=== PATIENT | female | born 1990 | race African-American/Black ===

== ENCOUNTER 2020-01-05 16:38 | Emergency (ER) | payer OTHER, SELFPAY ==
[2020-01-05 17:15] VITALS: BP 144/83; PULSE 94; RESP 20; TEMP 36.8; O2SAT 100
[2020-01-05 17:39] VITALS: BP 133/78; BP 134/87; BP 145/87; PULSE 88; PULSE 92
[2020-01-05 18:07] LABS: Basophils Percent Auto 0.6 % (0.2-1.2); Eosinophils Absolute Auto 0.1 K/mm3 (0-0.3); Eosinophils Percent Auto 2.1 % (0-4.4); Hemoglobin 13.9 g/dL (12.0-15.0); Immature Granulocyte Absolute 0.01 K/mm3 (0.00-0.031); Immature Granulocyte Percent A 0.2 % (0-0.5); Lymphocytes Absolute Auto 1.76 K/mm3 (0.9-3.2); Lymphocytes Percent Auto 33.3 % (18.3-44.2); Mean Corpuscular HGB Conc 32.3 g/dl (32-36); Mean Corpuscular Hemoglobin 28.1 pg (26-34); Mean Platelet Volume 11.2 fl (7.4-10.4); Monocytes Absolute Auto 0.4 K/mm3 (0.1-0.6); Monocytes Percent Auto 7.6 % (2.6-8.5); Neutrophils Percent Auto 56.2 % (45.5-73.1); Platelet Count Result 203 k/mm3 (150-375); Red Blood Count 4.94 M/mm3 (4.2-5.4); Red Cell Distribution Width 13.2 % (11.5-14.5); White Blood Count 5.3 K/mm3 (4.5-10.0)
[2020-01-05 18:22] LABS: Blood Urea Nitrogen 15 mg/dL (7-17); Calcium 9.6 mg/dL (8.4-10.2); Carbon Dioxide 22 mmol/L (22-30); Chloride 103 mmol/L (98-107); Estimated CRCL calculation 94 ml/min; Estimated Glomerular Filt Rate > 60; Glucose 83 mg/dL (65-105); Potassium 4.6 mmol/L (3.4-5.0); Sodium 137 mmol/L (137-145)
--- NOTE | 2020-01-05 19:11 | PC.NURSE ---
Assumed care of pt at this time/. Report from ANGEL Whittaker
--- NOTE | 2020-01-05 19:25 | ED.GENADULT ---
HPI - General Adult General Chief complaint: Dizziness Stated complaint: dizzy, lightheaded, +preg test Time Seen by Provider: 01/05/20 19:01 History of Present Illness HPI narrative: Patient presents with her boyfriend for 1 month of feeling dizzy lightheaded and nauseated. She recently had a positive urine test. She has an appointment with her new [employer]NER on January 19. Her last period was in the beginning of November. She is G6, P5, Ab1. She works at the [employer] for [employer] and there is no air conditioning in the [employer]. She gets very lightheaded and overheated. She is allowed to take 30-minute breaks in the air conditioned lunchroom.. She does not have any medicine at home for nausea. She has no medical problems. She is not high risk for the . She has surgery on her left shoulder. She does not smoke, drink alcohol, or do drugs. Her boyfriend said she also has trouble sleeping. Onset (ago): week(s) Related Data Allergies Allergy/AdvReac Type Severity Reaction Status Date / Time ibuprofen Allergy Itching Verified 01/05/20 17:26 Review of Systems Review of Systems: Narrative: CONSTITUTIONAL: Denies fever, chills, or sweats. EYES: Denies visual changes, redness, or discharge. ENT: Denies rhinorrhea, congestion, sore throat, or otalgia. CARDIOVASCULAR: Denies chest pain, palpitations, or edema. RESPIRATORY: Denies cough or dyspnea. GASTROINTESTINAL: Denies abdominal pain, but does have nausea. GENITOURINARY: Denies dysuria or hematuria. SKIN: Denies rash or itching. MUSCULOSKELETAL: Denies back pain, joint pain, or myalgia. NEUROLOGIC: Denies headache, numbness, or weakness. . PMFSH Surgical History Surgical History History of shoulder surgery Social History Social History (Updated 01/05/20 @ 19:28 by Heather Goncalves MD) Smoking status: Never smoker Alcohol intake: former Substance use: never Exam Narrative: Exam Narrative: GENERAL: Well-appearing, well-nourished, and in no acute distress. Heavy hair extensions, long fake eyelashes, many tattoos, overweight. HEAD: Normocephalic, atraumatic. EYES: PERRLA and EOMI. ENT: Nares clear, no rhinorrhea or epistaxis. Mucous membranes moist. NECK: Supple. CHEST: Clear to auscultation. No respiratory distress. HEART: Regular rate and rhythm. No murmur heard. Normal peripheral pulses. ABDOMEN: Soft, nontender, nondistended, normal active bowel sounds. EXTREMITIES: Normal range of motion. No edema. SKIN: Warm, dry, no rash. NEURO: No focal deficits. Alert and oriented x3. PSYCH: Normal mood and affect. Course Vital Signs Vital signs: Vital Signs Temperature 98.3 F 01/05/20 17:15 Pulse Rate 94 01/05/20 17:15 Respiratory Rate 01/05/20 17:15 Blood Pressure 144/83 H 01/05/20 17:15 Pulse Oximetry 100 01/05/20 17:15 Temperature 98.3 F 01/05/20 17:15 Pulse Rate 92 01/05/20 17:39 Respiratory Rate 01/05/20 17:15 Blood Pressure 145/87 H 01/05/20 17:39 Pulse Oximetry 100 01/05/20 17:15 Medical Decision Making Medical Records Medical records reviewed: Yes I reviewed the patient's medical records. Vital Signs Vital Signs: Vital Signs Temperature 98.3 F 01/05/20 17:15 Pulse Rate 94 01/05/20 17:15 Respiratory Rate 01/05/20 17:15 Blood Pressure 144/83 H 01/05/20 17:15 Pulse Oximetry 100 01/05/20 17:15 Temperature 98.3 F 01/05/20 17:15 Pulse Rate 92 01/05/20 17:39 Respiratory Rate 01/05/20 17:15 Blood Pressure 145/87 H 01/05/20 17:39 Pulse Oximetry 100 01/05/20 17:15 Lab Data Lab results reviewed: Yes I reviewed the patient's lab results. Result diagrams: 01/05/20 18:01 01/05/20 18:01 Labs: Lab Results 01/05/20 01/05/20 Range/Units 18:01 18:01 WBC 5.3 (4.5-10.0) K/mm3 RBC 4.94 (4.2-5.4) M/mm3 Hgb 13.9 (12.0-15.0) g/dL Hct 43.0 (37.0-47.0) % MCV 87.0
[2020-01-05 19:27] VITALS: BP 118/83; PULSE 98; RESP 15; O2SAT 100
[2020-01-05 19:35] VITALS: BP 119/82; PULSE 79; RESP 15; O2SAT 100
== END 2020-01-05 19:35 | disposition home or self-care (01) ==
PROVIDERS: Emergency Medicine; Emergency Provider Emergency Medicine
DX: O9A.211 Injury, poisoning and certain other consequences of external causes complicating pregnancy, first trimester (principal); T67.9XXA Effect of heat and light, unspecified, initial encounter; O26.891 Other specified pregnancy related conditions, first trimester; R11.0 Nausea; Z3A.00 Weeks of gestation of pregnancy not specified
CPT/HCPCS: 36415; 80048; 81025; 85025; 99283

== ENCOUNTER 2020-02-22 07:35 | Emergency (ER) | payer MEDICAID, SELFPAY ==
--- NOTE | ~2020-02-22 | XR_ITS ---
EXAMINATION: XR chest 2V DATE: 02/22/2020 08:23 INDICATION: Chest pain TECHNIQUE: PA and lateral views of the chest are obtained. COMPARISON: None available FINDINGS: The lungs are free of acute opacities. There is no pleural effusion or pneumothorax. The ca rdiomediastinal silhouette is normal. The visualized bones and soft tissues are unremarkable. IMPRESSION: 1. No acute cardiopulmonary abnormality. Reviewed, dictated and finalized at location A.
[2020-02-22 07:39] VITALS: BP 142/94; PULSE 84; RESP 18; TEMP 36.5; O2SAT 100
--- NOTE | 2020-02-22 07:39 | ED.CHESTPAIN ---
HPI - Chest Pain General Chief Complaint: Chest Pain Stated Complaint: Pulled Muscle but now Chest Pain Time Seen by Provider: 02/22/20 07:38 Source: patient Mode of arrival: ambulatory Limitations: no limitations History of Present Illness HPI narrative: Patient is a 29-year-old female who presents for evaluation of right arm pain that has radiated into her right chest. Patient reports and over 2-week history of right arm pain that she initially noticed when she was pulling carts at work. Patient states she attributed this to musculoskeletal pain but has since noticed constant chest pain in the center of her chest that is worse when she is doing exertional activities such as pulling, bending or lifting. Patient states that the central chest pain has been present for over 2 weeks. Her primary care physician did evaluate this and felt that it was musculoskeletal. No associated palpitations, shortness of breath, nausea or diaphoresis. Patient is not on control. Patient does not smoke. No recent long car or air travel. No fever, hemoptysis or cough. No leg swelling or pain. No history of DVT. Related Data Allergies Allergy/AdvReac Type Severity Reaction Status Date / Time ibuprofen Allergy Itching Verified 02/22/20 07:59 Review of Systems Review of Systems: Narrative: CONSTITUTIONAL: Denies fever, chills, or sweats. EYES: Denies visual changes, redness, or discharge. ENT: Denies rhinorrhea, congestion, sore throat, or otalgia. CARDIOVASCULAR: Reports central chest pain, denies palpitations or edema RESPIRATORY: Denies cough or dyspnea. GASTROINTESTINAL: Denies abdominal pain, nausea GENITOURINARY: Denies dysuria or hematuria. SKIN: Denies rash or itching. MUSCULOSKELETAL: Denies back pain NEUROLOGIC: Denies headache [facility] Surgical History Surgical History History of shoulder surgery Social History Social History Smoking status: Never smoker Alcohol intake: former Substance use: never Exam Narrative: Exam Narrative: GENERAL: Awake, alert, conversant HEAD: Normocephalic, atraumatic. EYES: PERRLA and EOMI. ENT: Nares clear, no rhinorrhea or epistaxis. Mucous membranes moist. NECK: Supple. CHEST: No respiratory distress, breathing even and non labored, central chest wall tenderness which reproduces pain, no crepitus or ecchymoses HEART: Regular rate, sinus rhythm, no murmur ABDOMEN:Non distended, non tender EXTREMITIES: Normal range of motion. No edema. No calf tenderness bilaterally. SKIN: Warm, dry, no rash. NEURO:No focal deficits. Alert and oriented x3 Course Vital Signs Vital signs: Vital Signs Temperature 36.5 C 02/22/20 07:39 Pulse Rate 84 02/22/20 07:39 Respiratory Rate 18 02/22/20 07:39 Blood Pressure 142/94 H 02/22/20 07:39 Pulse Oximetry 100 02/22/20 07:39 Temperature 36.5 C 02/22/20 07:39 Pulse Rate 74 02/22/20 08:50 Respiratory Rate 18 02/22/20 08:50 Blood Pressure 149/92 H 02/22/20 08:50 Pulse Oximetry 100 02/22/20 08:50 MDM - Chest Pain MDM Narrative Medical decision making narrative: Patient's EKG and labs are without significant high risk changes. She does have a very mild leukopenia which is new compared to previous lab draw, this can best be followed by her primary care physician. There are no signs of acute infection currently. Cardiac risk factors reviewed. Patient is felt low risk for ACS and reasonable for further risk stratification testing as an outpatient. Initial troponin is negative, making myocarditis, endocarditis less likely. Pain was not sudden or maximal or onset without tearing or ripping quality. No other signs or symptoms to suggest aortic dissection. A low risk well's criteria is noted, PE is felt to be unlikely. Patient is PERC negative, no tachycardia, not a smoker, not on any control thus we do not need to o
--- NOTE | 2020-02-22 07:55 | ECG_ITS ---
Measurements Intervals [place] Rate: 74 P: 61 NE: 163 QRS: 51 QRSD: 90 T: 41 QT: 375 QTc: 417 Interpretive Statements SINUS RHYTHM RSR' IN V1 OR V2, CONSIDER RIGHT VENTRICULAR HYPERTROPHY OR RIGHT VCD BASELINE WANDER- I, II, AVR BORDERLINE ECG Electronically Signed On 02-22-2020 9:29:01 CDT by Sarkis Phelps D.O.
[2020-02-22 08:24] LABS: Prothrombin Time 12.7 Seconds (11.1-14.7)
[2020-02-22 08:26] LABS: Partial Thromboplastin Time 25.7 SECONDS (22.3-36.8)
[2020-02-22 08:27] LABS: Anion Gap 5 mmol/L (8-16); Blood Urea Nitrogen 10 mg/dL (7-17); Calcium 9.3 mg/dL (8.4-10.2); Carbon Dioxide 29 mmol/L (22-30); Chloride 105 mmol/L (98-107); Estimated CRCL calculation 102 ml/min; Estimated Glomerular Filt Rate > 60; Glucose 87 mg/dL (65-105); Potassium 3.8 mmol/L (3.4-5.0); Sodium 139 mmol/L (137-145)
[2020-02-22 08:39] LABS: Troponin I < 0.012 ng/mL (0.000-0.034)
[2020-02-22 08:47] LABS: Basophils Percent Auto 0.4 % (0.2-1.2); Eosinophils Absolute Auto 0.1 K/mm3 (0-0.3); Hemoglobin 12.8 g/dL (12.0-15.0); Lymphocytes Absolute Auto 1.02 K/mm3 (0.9-3.2); Lymphocytes Percent Auto 41.1 % (18.3-44.2); Mean Corpuscular Hemoglobin 27.9 pg (26-34); Mean Corpuscular Volume 87.3 fl (80-100); Mean Platelet Volume 11.5 fl (7.4-10.4); Monocytes Absolute Auto 0.3 K/mm3 (0.1-0.6); Monocytes Percent Auto 10.1 % (2.6-8.5); Neutrophils Absolute Auto 1.2 K/mm3 (1.3-6.7); Neutrophils Percent Auto 46.4 % (45.5-73.1); Platelet Count Result 154 k/mm3 (150-375); Red Blood Count 4.58 M/mm3 (4.2-5.4); Red Cell Distribution Width 12.7 % (11.5-14.5); White Blood Count 2.5 K/mm3 (4.5-10.0)
[2020-02-22 08:50] VITALS: BP 149/92; PULSE 74; RESP 18; O2SAT 100
== END 2020-02-22 09:00 | disposition home or self-care (01) ==
PROVIDERS: Emergency Provider Emergency Medicine; PCP Physician Assistant
DX: R07.89 Other chest pain (principal); R94.31 Abnormal electrocardiogram [ECG] [EKG]
CPT/HCPCS: 36415; 71046; 80048; 84484; 85025; 85610; 85730; 93005; 99284

== ENCOUNTER 2020-02-28 18:17 | Emergency (ER) | payer MEDICAID, SELFPAY ==
[2020-02-28 18:20] VITALS: BP 136/84; PULSE 96; RESP 18; TEMP 36.1; O2SAT 100
--- NOTE | 2020-02-28 19:42 | ED.EAR ---
HPI - Ear Problem General Chief complaint: Ear <Walter Chaney PA-C - Last Filed: 02/28/20 19:46> Stated complaint: real bad earache <SARBJIT Tsang Last Filed: 02/28/20 19:46> Time Seen by Provider: 02/28/20 19:15 <Walter Chaney PA-C - Last Filed: 02/28/20 19:46> Source: patient <Walter Chaney PA-C - Last Filed: 02/28/20 19:46> Mode of arrival: ambulatory <Walter Chaney PA-C - Last Filed: 02/28/20 19:46> Limitations: no limitations <Walter Chaney PA-C - Last Filed: 02/28/20 19:46> History of Present Illness HPI Narrative: Patient is a 29-year-old female who presents to emergency department for evaluation of right ear pain and some discomfort with swallowing on the right side denies other URI symptoms fever chills patient believes that when she drinks she develops these symptoms noting that she drinks roughly twice a week. Patient has not taken anything for her symptoms and is otherwise resting comfortably in the room upon arrival and has not taken anything for her symptoms nor has she been seen for this complaint <Walter Chaney PA-C - Last Filed: 02/28/20 19:46> Related Data Allergies/adverse reactions: Allergies Allergy/AdvReac Type Severity Reaction Status Date / Time ibuprofen Allergy Itching Verified 02/22/20 07:59 <Walter Chaney PA-C - Last Filed: 02/28/20 19:46> Review of Systems Review of Systems: All systems reviewed & are unremarkable except as noted in HPI and below <Walter Chaney PA-C - Last Filed: 02/28/20 19:46> PMFSH Surgical History Surgical History: Surgical History History of shoulder surgery <SARBJIT Tsang Last Filed: 02/28/20 19:46> Social History Social History: Social History Smoking status: Never smoker Alcohol intake: former Substance use: never Gender identity (if verbalized by the patient): Female <SARBJIT Tsang Last Filed: 02/28/20 19:46> Exam Narrative: Exam Narrative: GENERAL: Well-appearing, well-nourished, and in no acute distress. HEAD: Normocephalic, atraumatic. EYES: PERRLA and EOMI. ENT: Nares clear, no rhinorrhea or epistaxis. Mucous membranes moist. Oropharynx without tonsillar hypertrophy exudate or other lesions. Bilateral TMs pearly shah nonbulging NECK: Supple. No adenopathy or masses. CHEST: Clear to auscultation. No respiratory distress. No wheezes rales or rhonchi HEART: Regular rate and rhythm. No murmur heard. EXTREMITIES: Normal range of motion. No edema. SKIN: Warm, dry, no rash. NEURO: No focal deficits. Alert and oriented x3. PSYCH: Normal mood and affect. <SARBJIT Tsang Last Filed: 02/28/20 19:46> Course Course Emergency Course: Patient in the room in no distress aware of case findings treatment plan and diagnosis felt appropriate for discharge home <SARBJIT Tsang Last Filed: 02/28/20 19:46> Vital Signs Vital signs: Vital Signs Temperature 36.1 C L 02/28/20 18:20 Pulse Rate 96 02/28/20 18:20 Respiratory Rate 18 02/28/20 18:20 Blood Pressure 136/84 02/28/20 18:20 Pulse Oximetry 100 02/28/20 18:20 Temperature 36.1 C L 02/28/20 18:20 Pulse Rate 96 02/28/20 18:20 Respiratory Rate 18 02/28/20 18:20 Blood Pressure 136/84 02/28/20 18:20 Pulse Oximetry 100 02/28/20 18:20 <SARBJIT Tsang Last Filed: 02/28/20 19:46> Vital Signs Temperature 36.1 C L 02/28/20 18:20 Pulse Rate 96 02/28/20 18:20 Respiratory Rate 18 02/28/20 18:20 Blood Pressure 136/84 02/28/20 18:20 Pulse Oximetry 100 02/28/20 18:20 Temperature 36.1 C L 02/28/20 18:20 Pulse Rate 96 02/28/20 18:20 Respiratory Rate 18 02/28/20 18:20 Blood Pressure 136/84 02/28/20 18:20 Pulse Oximetry 100 02/28/20 18:20 <Cb Martin MD -
== END 2020-02-28 21:07 | disposition home or self-care (01) ==
PROVIDERS: Emergency Provider Emergency Medicine; PCP Physician Assistant
DX: H92.01 Otalgia, right ear (principal)
CPT/HCPCS: 99283

== ENCOUNTER 2020-03-28 17:45 | Emergency (ER) | payer OTHER, SELFPAY ==
--- NOTE | ~2020-03-28 | XR_ITS ---
XR foot LT min 3V DATE: 03/28/2020 18:25 INDICATION: Injury one week ago. Lateral metatarsal foot pain TECHNIQUE: 4 views COMPARISON: None FINDINGS: No recent fracture, dislocation, periosteal reaction or bone destruction. Joint spaces are preserved. No erosive change. IMPRESSION: Reviewed, dictated and finalized at location A. IMPRESSION:
[2020-03-28 17:49] VITALS: BP 129/73; PULSE 82; TEMP 36.7; O2SAT 100
--- NOTE | 2020-03-28 18:37 | ED.LOWEXIN ---
HPI - Extremity Injury (Lower) General Chief Complaint: Extremity Injury, Lower <Luli Kong PA-C - Last Filed: 03/28/20 19:20> Stated Complaint: foot injury last week <SARBJIT Pearson Last Filed: 03/28/20 19:20> Time Seen by Provider: 03/28/20 18:03 <Luli Kong PA-C - Last Filed: 03/28/20 19:20> Source: patient <SARBJIT Pearson Last Filed: 03/28/20 19:20> Mode of arrival: ambulatory <SARBJIT Pearson Last Filed: 03/28/20 19:20> Limitations: no limitations <Luli Kong PA-C - Last Filed: 03/28/20 19:20> History of Present Illness HPI Narrative: This is a 29 year old female that presents to the ER for left foot pain after an injury 1 week ago. Reports a tote fell on her foot. Since she has had pain in the area. Worse with weight bearing and relieved with rest. Denies decreased ROM or numbness. <Luli Kong PA-C - Last Filed: 03/28/20 19:20> Related Data Home Medications: Home Medications Medication Instructions Recorded Confirmed No Home Medications 03/28/20 03/28/20 <Luli Kong PA-C - Last Filed: 03/28/20 19:20> Allergies/Adverse Reactions: Allergies Allergy/AdvReac Type Severity Reaction Status Date / Time ibuprofen Allergy Itching Verified 03/28/20 17:51 <Luli Kong PA-C - Last Filed: 03/28/20 19:20> Review of Systems Review of Systems: Narrative: CONSTITUTIONAL: Denies fever SKIN: Denies rash MUSCULOSKELETAL: Reports joint pain, and myalgia. NEUROLOGIC: Denies numbness, or weakness. <SARBJIT Pearson Last Filed: 03/28/20 19:20> All systems reviewed & are unremarkable except as noted in HPI and below <SARBJIT Pearson Last Filed: 03/28/20 19:20> [facility] Surgical History Surgical History: Surgical History History of shoulder surgery <Luli Kong PA-C - Last Filed: 03/28/20 19:20> Social History Social History: Social History Smoking status: Never smoker Alcohol intake: former Substance use: never Gender identity (if verbalized by the patient): Female <Luli Kong PA-C - Last Filed: 03/28/20 19:20> Exam Narrative: Exam Narrative: GENERAL: Well-appearing, well-nourished, and in no acute distress. HEAD: Normocephalic, atraumatic. EYES: EOMI. EXTREMITIES: Normal range of motion. No edema or obvious deformity. Normal DP pulses. Normal sensation SKIN: Warm, dry, no rash. NEURO: No focal deficits. Alert and oriented x3. PSYCH: Normal mood and affect <Luli Kong PA-C - Last Filed: 03/28/20 19:20> Course Vital Signs Vital signs: Vital Signs Temperature 36.7 C 03/28/20 17:49 Pulse Rate 82 03/28/20 17:49 Blood Pressure 129/73 03/28/20 17:49 Pulse Oximetry 100 03/28/20 17:49 Temperature 36.7 C 03/28/20 17:49 Pulse Rate 80 03/28/20 19:40 Respiratory Rate 19 03/28/20 19:40 Blood Pressure 127/75 03/28/20 19:40 Pulse Oximetry 99 03/28/20 19:40 <Luli Kong PA-C - Last Filed: 03/28/20 19:20> Vital Signs Temperature 36.7 C 03/28/20 17:49 Pulse Rate 82 03/28/20 17:49 Blood Pressure 129/73 03/28/20 17:49 Pulse Oximetry 100 03/28/20 17:49 Temperature 36.7 C 03/28/20 17:49 Pulse Rate 80 03/28/20 19:40 Respiratory Rate 19 03/28/20 19:40 Blood Pressure 127/75 03/28/20 19:40 Pulse Oximetry 99 03/28/20 19:40 <Elida Pulido MD - Last Filed: 03/28/20 21:05> MDM - Extremity Injury (Lower) MDM Narrative Medical decision making narrative: Patient presents emergency department for left foot pain after an injury 1 week ago. Left foot x-rays without acute findings. Patient was instructed to rest, ice and take [id number] pain medication as needed. Patient is to follow-up with primary care doctor. She was given warnings to return to the
[2020-03-28 19:40] VITALS: BP 127/75; PULSE 80; RESP 19; O2SAT 99
== END 2020-03-28 19:42 | disposition home or self-care (01) ==
PROVIDERS: Emergency Provider Emergency Medicine; PCP Physician Assistant
DX: M79.672 Pain in left foot (principal)
CPT/HCPCS: 73630; 99283

== ENCOUNTER 2020-06-21 11:49 | Emergency (ER) | payer OTHER, SELFPAY ==
[2020-06-21 12:05] VITALS: BP 129/85; PULSE 110; RESP 18; TEMP 36.9; O2SAT 98
--- NOTE | 2020-06-21 12:38 | ED.EAR ---
HPI - Ear Problem General Chief complaint: Ear Stated complaint: right ear ache Time Seen by Provider: 06/21/20 12:11 Source: patient Mode of arrival: ambulatory Limitations: no limitations History of Present Illness HPI Narrative: Patient is a 29-year-old female who presents complaining of right ear pain x1 day. Patient also reports mild congestion. She denies exposure to Covid. She denies all other complaints at this time. She denies taking [id number] medications for pain relief. MD Complaint: ear pain Location: right ear Related Data Allergies Allergy/AdvReac Type Severity Reaction Status Date / Time ibuprofen Allergy Itching Verified 06/21/20 12:17 Review of Systems Review of Systems: Narrative: CONSTITUTIONAL: Denies fever, chills, or sweats. EYES: Denies visual changes, redness, or discharge. ENT: Right otalgia CARDIOVASCULAR: Denies chest pain, palpitations, or edema. RESPIRATORY: Denies cough or dyspnea. GASTROINTESTINAL: Denies abdominal pain, nausea, vomiting, or diarrhea. GENITOURINARY: Denies dysuria or hematuria. SKIN: Denies rash or itching. MUSCULOSKELETAL: Denies back pain, joint pain, or myalgia. NEUROLOGIC: Denies headache, numbness, dizziness, or weakness. PSYCHIATRIC: Denies anxiety or depression. [facility] Surgical History Surgical History History of shoulder surgery Social History Social History Smoking status: Never smoker Alcohol intake: former Substance use: never Gender identity (if verbalized by the patient): Female Exam Narrative: Exam Narrative: GENERAL: Well-appearing, well-nourished, and in no acute distress. HEAD: Normocephalic, atraumatic. EYES: EOMI. No redness or drainage. Conjunctiva are normal. ENT: Mucous membranes pink and moist. Nares clear. Left TM normal, right TM bulging and injected. Throat normal. Uvula midline. NECK: AROM. Supple. No lymphadenopathy. CHEST: No respiratory distress. EXTREMITIES: Normal range of motion. SKIN: Warm, dry, no rash. NEURO: No focal deficits. Alert and oriented x3. Gait steady. PSYCH: Normal affect. No signs of depression or anxiety. Course Vital Signs Vital signs: Vital Signs Temperature 36.9 C 06/21/20 12:05 Pulse Rate 110 H 06/21/20 12:05 Respiratory Rate 18 06/21/20 12:05 Blood Pressure 129/85 06/21/20 12:05 Pulse Oximetry 98 06/21/20 12:05 Temperature 36.9 C 06/21/20 12:05 Pulse Rate 110 H 06/21/20 12:05 Respiratory Rate 18 06/21/20 12:05 Blood Pressure 129/85 06/21/20 12:05 Pulse Oximetry 98 06/21/20 12:05 Medical Decision Making MDM Narrative Medical decision making narrative: Patient has right otitis media. Discussed with patient starting antibiotics and taking Tylenol for pain. Patient aware of the need for follow-up for an ear recheck in 2 to 3 weeks. Patient also instructed on use of Flomax and [id number] allergy relief for other complaints as well. Patient is stable for discharge home with outpatient follow-up as discussed. Differential Diagnosis Differential Diagnosis: Otitis media, otitis externa, foreign body, cerumen impaction Vital Signs Vital Signs: Vital Signs Temperature 36.9 C 06/21/20 12:05 Pulse Rate 110 H 06/21/20 12:05 Respiratory Rate 18 06/21/20 12:05 Blood Pressure 129/85 06/21/20 12:05 Pulse Oximetry 98 06/21/20 12:05 Temperature 36.9 C 06/21/20 12:05 Pulse Rate 110 H 06/21/20 12:05 Respiratory Rate 18 06/21/20 12:05 Blood Pressure 129/85 06/21/20 12:05 Pulse Oximetry 98 06/21/20 12:05 Reviewed-patient is informed that they may have pre-hypertension or hypertension based on a blood pressure reading. I recommend the patient call the primary care provider listed on their discharge instructions or a physician of their choice this week to arrange follow-up for further evaluation of possible pre-h
[2020-06-21 12:56] VITALS: BP 124/88; PULSE 98; RESP 20; O2SAT 99
[2020-06-21] MEDS: ACETAMINOPHEN 500 MG TABLET 1000 MG PO (12:56)
== END 2020-06-21 12:58 | disposition home or self-care (01) ==
PROVIDERS: Emergency Provider Nurse Practitioner; PCP Physician Assistant
DX: H66.91 Otitis media, unspecified, right ear (principal); R03.0 Elevated blood-pressure reading, without diagnosis of hypertension
CPT/HCPCS: 99283; A9270

== ENCOUNTER 2022-05-12 14:08 | Emergency (ER) | payer BC, OTHER, SELFPAY ==
--- NOTE | ~2022-05-12 | XR_ITS ---
EXAMINATION: XR chest 1V portable DATE: 05/12/2022 15:34 INDICATION: Cough and midsternal chest pain TECHNIQUE: frontal view of the chest was obtained. COMPARISON: Chest radiograph dated 02/22/20 FINDINGS: The lungs remain clear with no focal airspace opacities, pulmonary edema, pleural effusion or pneumot horax. The cardiomediastinal silhouette is normal. Chronic exostosis which appears to demonstrate cor tical medullary continuity on the prior radiograph at the medial metadiaphyseal region of the proxima l left humerus consistent with an osteochondroma. IMPRESSION: 1. No acute cardiopulmonary disease. Reviewed, dictated and finalized at location A. L TECHNICIAN
[2022-05-12 14:31] VITALS: BP 131/87; PULSE 100; RESP 16; TEMP 36.9; O2SAT 100
--- NOTE | 2022-05-12 14:35 | ECG_ITS ---
Measurements Intervals [place] Rate: 93 P: 69 CO: 164 QRS: 68 QRSD: 90 T: 65 QT: 341 QTc: 426 Interpretive Statements SINUS RHYTHM RSR' IN V1 OR V2, PROBABLY NORMAL VARIANT BORDERLINE ST-T WAVE ABNORMALITY- ANT/INF LEADS BASELINE ARTIFACT- I, II, AVR, V4 BORDERLINE ECG COMPARED TO ECG 02/22/2020 07:55:29 NO SIGNIFICANT CHANGES Electronically Signed On 05-12-2022 20:51:22 SPANISH TRANSLATOR by Sarkis Phelps D.O.
--- NOTE | 2022-05-12 15:45 | ED.GENADULT ---
HPI - General Adult General Chief complaint: Unspecified Stated complaint: ? fb throat Time Seen by Provider: 05/12/22 15:13 Source: patient Mode of arrival: ambulatory Limitations: no limitations History of Present Illness HPI narrative: 31-year-old female presents today with complaints of intermittent chest pain over the last few days. Patient describes it as a burning sensation. Patient does endorse a cough but denies fever, body aches, chills, but did start with a sore throat this morning. Patient did also mention that she swallowed some turkey yesterday and felt discomfort in the chest afterwards. But then again she states that this discomfort that she felt after swallowing the turkey is the same discomfort that she has had for the last few days. Patient denies any shortness of breath, difficulty breathing, or difficulty swallowing. Patient has had recent contact with family members who are positive for influenza and pneumonia. Patient tolerating intake and food without difficulty at this time. Related Data Allergies Allergy/AdvReac Type Severity Reaction Status Date / Time ibuprofen Allergy Itching Verified 06/21/20 12:17 Review of Systems Review of Systems: CONSTITUTIONAL: Denies fever, chills, or sweats. EYES: Denies visual changes, redness, or discharge. ENT: Sore throat. Denies rhinorrhea, congestion, or otalgia. CARDIOVASCULAR: Intermittent chest pain, pleuritic pain. Denies palpitations, or edema. RESPIRATORY: Cough. Denies dyspnea. GASTROINTESTINAL: Denies abdominal pain, nausea, vomiting, or diarrhea. GENITOURINARY: Denies dysuria or hematuria. SKIN: Denies rash or itching. MUSCULOSKELETAL: Denies back pain, joint pain, or myalgia. NEUROLOGIC: Denies headache, numbness, dizziness, or weakness. PSYCHIATRIC: Denies anxiety or depression. [facility] Surgical History Surgical History History of shoulder surgery Social History Social History Smoking status: Never smoker Alcohol intake: former Substance use: never Gender identity (if verbalized by the patient): Female Course Vital Signs Vital signs: Vital Signs Temperature 98.4 F 05/12/22 14:31 Pulse Rate 100 05/12/22 14:31 Respiratory Rate 16 05/12/22 14:31 Blood Pressure 131/87 11/24/22 14:31 Pulse Oximetry 100 05/12/22 14:31 Temperature 98.4 F 05/12/22 14:31 Pulse Rate 100 05/12/22 14:31 Respiratory Rate 16 05/12/22 14:31 Blood Pressure 131/87 05/12/22 14:31 Pulse Oximetry 100 05/12/22 14:31 Medical Decision Making MDM Narrative Medical decision making narrative: 31-year-old female HPI as noted. Differentials as noted below. Low suspicion for actual foreign body in the throat and patient states the same. Work-up to include COVID, flu, EKG, chest x-ray. COVID and flu negative, EKG shows normal sinus rhythm without ectopy. Chest x-ray without any acute findings. Suspect possible blocks versus bronchitis. Patient does state that her cough is not that bad and is random. So more likely reflux is the issue. She does eat spicy foods. Differential Diagnosis Differential Diagnosis: Flu, COVID, bronchitis, viral syndrome, acid reflux. Medical Records Medical records reviewed: Yes I reviewed the external patient's medical records. Vital Signs Vital Signs: Vital Signs Temperature 98.4 F 05/12/22 14:31 Pulse Rate 100 05/12/22 14:31 Respiratory Rate 16 05/12/22 14:31 Blood Pressure 131/87 05/12/22 14:31 Pulse Oximetry 100 05/12/22 14:31 Temperature 98.4 F 05/12/22 14:31 Pulse Rate 100 05/12/22 14:31 Respiratory Rate 16 05/12/22 14:31 Blood Pressure 131/87 05/12/22 14:31 Pulse Oximetry 100 05/12/22 14:31 Lab Data Lab results reviewed: Yes I reviewed the patient's lab results. Labs: Lab Results 05/12/22 Range/Units 15:32 Influenza A (RT-PCR) Ne
[2022-05-12 16:13] LABS: Influenza A QL RT-PCR Negative (Negative); Influenza B QL RT-PCR Negative (Negative); SARS-CoV-2 RNA PCR Negative
== END 2022-05-12 17:30 | disposition home or self-care (01) ==
PROVIDERS: Emergency Provider Nurse Practitioner Family; PCP Physician Assistant
DX: R07.9 Chest pain, unspecified (principal); K21.9 Gastro-esophageal reflux disease without esophagitis; Z20.822 Contact with and (suspected) exposure to COVID-19; R94.31 Abnormal electrocardiogram [ECG] [EKG]
CPT/HCPCS: 71045; 87636; 93005; 99283

== ENCOUNTER 2024-03-25 17:09 | Emergency (ER) | payer OTHER, SELFPAY | END 2024-03-25 18:51 | disposition left against medical advice (07) | LOC: ANHED 18:49 | PROVIDERS: PCP Physician Assistant | DX: L29.9 Pruritus, unspecified (principal) | CPT/HCPCS: 99199 ==

== ENCOUNTER 2024-03-31 09:19 | Emergency (ER) | payer OTHER, SELFPAY ==
--- NOTE | ~2024-03-31 | XR_ITS ---
EXAMINATION: XR chest 1V portable DATE: 03/31/2024 10:11 INDICATION: Leg swelling. TECHNIQUE: A single frontal view of the chest was obtained. COMPARISON: Chest single view 05/12/2022 FINDINGS: There is no pneumonia, pleural effusion, or pneumothorax. The heart size is normal. IMPRESSION: 1. No acute cardiopulmonary disease. Reviewed, dictated and finalized at location A.
--- NOTE | ~2024-03-31 | XR_ITS ---
EXAMINATION: XR elbow RT min 3V DATE: 03/31/2024 10:11 INDICATION: Right elbow pain. TECHNIQUE: 4 views of right elbow were obtained. COMPARISON: None. FINDINGS: Alignment is normal. No fracture. Joint spaces are normal. No elbow joint effusion. IMPRESSION: 1. Normal right elbow. Reviewed, dictated and finalized at location A. IMPRESSION: 1. Normal right elbow.
[2024-03-31 09:34] VITALS: BP 119/76; PULSE 85; RESP 17; TEMP 36.5; O2SAT 100
[2024-03-31 10:19] LABS: Basophils Percent Auto 0.3 % (0.2-1.2); Eosinophils Percent Auto 0.7 % (0-4.4); Hematocrit 38.9 % (37.0-47.0); Hemoglobin 12.4 g/dL (12.0-15.0); Immature Granulocyte Absolute 0.01 K/mm3 (0.00-0.031); Immature Granulocyte Percent A 0.3 % (0-0.5); Lymphocytes Absolute Auto 1.11 K/mm3 (0.9-3.2); Lymphocytes Percent Auto 38.8 % (18.3-44.2); Mean Corpuscular HGB Conc 31.9 g/dl (32-36); Mean Corpuscular Hemoglobin 27.6 pg (26-34); Mean Corpuscular Volume 86.4 fl (80-100); Monocytes Absolute Auto 0.3 K/mm3 (0.1-0.6); Monocytes Percent Auto 9.4 % (2.6-8.5); Neutrophils Absolute Auto 1.4 K/mm3 (1.3-6.7); Neutrophils Percent Auto 50.5 % (45.5-73.1); Platelet Count Result 157 k/mm3 (150-375); Red Cell Distribution Width 15.3 % (11.5-14.5); White Blood Count 2.9 K/mm3 (4.5-10.0)
[2024-03-31 10:30] LABS: Alanine Aminotransferase 14 U/L (6-35); Albumin Level 4.4 g/dL (3.5-5.1); Alkaline Phosphatase 53 U/L (38-126); Anion Gap 8 mmol/L (4-12); Aspartate Amino Transferase 22 U/L (14-36); Bilirubin,Total 0.6 mg/dL (0.2-1.3); Blood Urea Nitrogen 10 mg/dL (7-17); Calcium 9.4 mg/dL (8.4-10.2); Carbon Dioxide 24 mmol/L (22-30); Chloride 105 mmol/L (98-107); Estimated CRCL calculation 95 ml/min; Estimated Glomerular Filt Rate > 60; Glucose 89 mg/dL (65-110); Potassium 4.1 mmol/L (3.4-5.0); Sodium 137 mmol/L (137-145)
--- NOTE | 2024-03-31 10:36 | ED.GENADULT ---
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 Patient is also complaining intermittent bilateral lower extremity swelling. Patient denies any current leg pain and has no significant current leg swelling. Patient denies any cardiac history denies any prior history of PE or DVT. Patient denies any falls or injuries. Related Data Allergies Allergy/AdvReac Type Severity Reaction Status Date / Time ibuprofen Allergy Itching Verified 03/31/24 09:42 Review of Systems Review of Systems: All systems reviewed & are unremarkable except as noted in HPI and below PMFSH Surgical History Surgical History History of shoulder surgery Social History Social History Smoking status: Never smoker Alcohol intake: former Substance use: never Gender identity (if verbalized by the patient): Female Exam Narrative: APPEARANCE: Well appearing, no pain, no distress, well-nourished. HEAD: normocephalic, atraumatic. EYES: PERRLA/EOMI, conjunctivae clear. NOSE: Normal no drainage EARS:TMS clear with good light reflex. THROAT: Pharynx clear, no exudate. NECK: Supple. No adenopathy, no masses. RESPIRATORY: Airway patent, respirations nonlabored. Clear to auscultation bilaterally, no rales, rhonchi, wheezing. CARDIOVASCULAR: Regular rate and rhythm without murmurs rubs or gallops. ABDOMINAL: Soft, nontender, nondistended, normal bowel sounds MUSCULOSKELETAL: Moves all extremities. Strength/ROM intact, No edema, No calf tenderness. NEURO: Alert. Cranial nerves II through XII intact. Grossly intact SKIN: Warm, dry. Normal Color Course Vital Signs Vital signs: Vital Signs Temperature 97.7 F 03/31/24 09:34 Pulse Rate 85 03/31/24 09:34 Respiratory Rate 17 03/31/24 09:34 Blood Pressure 119/76 03/31/24 09:34 Pulse Oximetry 100 03/31/24 09:34 Oxygen Delivery Room Air 03/31/24 09:34 Temperature 97.7 F 03/31/24 09:34 Pulse Rate 75 03/31/24 11:20 Respiratory Rate 16 03/31/24 11:20 Blood Pressure 115/80 03/31/24 11:20 Pulse Oximetry 99 03/31/24 11:20 Oxygen Delivery Room Air 03/31/24 09:34 Medical Decision Making MDM Narrative Medical decision making narrative: 33-year-old female presents to the emergency department for evaluation for right elbow pain that she attributes to repetitive motion. X-ray was negative for acute fracture dislocation. Was also complaining of lower extremity edema. Patient is afebrile with no leukocytosis and a stable hemoglobin of 12.4. Patient has no acute abnormalities on her CMP patient's BNP is not elevated. Chest x-ray showed no acute cardiopulmonary abnormality. Patient and family were updated on the results of the workup. All questions concerns were addressed. Differential Diagnosis Differential Diagnosis: Cellulitis, CHF, DVT, elbow strain, elbow tendinitis Vital Signs Vital Signs: Vital Signs Temperature 97.7 F 03/31/24 09:34 Pulse Rate 85 03/31/24 09:34 Respiratory Rate 17 03/31/24 09:34 Blood Pressure 119/76 03/31/24 09:34 Pulse Oximetry 100 03/31/24 09:34 Oxygen Delivery Room Air 03/31/24 09:34 Temperature 97.7 F 03/31/24 09:34 Pulse Rate 75 03/31/24 11:20 Respiratory Rate 16 03/31/24 11:20 Blood Pressure 115/80 03/31/24 11:20 Pulse Oximetry 99 03/31/24 11:20 Oxygen Delivery Room Air 03/31/24 09:34 Lab Data Lab results reviewed: Yes I reviewed the patient's lab results. 03/31/24 10:14 03/31/24 10:14 Labs: Lab Results 10
[2024-03-31 10:39] LABS: NT Pro B Type Natriuretic Pept 24 pg/mL (19.9-100)
--- NOTE | 2024-03-31 10:55 | ECG_ITS ---
Test Date: 2024-03-31 11:19:53 Measurements Intervals [place] Rate: 82 P: 60 MI: 169 QRS: 46 QRSD: 85 T: 35 QT: 350 QTc: 409 Interpretive Statements SINUS RHYTHM No previous ECG available for comparison Electronically Signed On 03-31-2024 13:34:44 CDT by Parmjit Cordero M.D.
[2024-03-31 11:20] VITALS: BP 115/80; PULSE 75; RESP 16; O2SAT 99
== END 2024-03-31 11:26 | disposition home or self-care (01) ==
PROVIDERS: Emergency Provider Emergency Medicine; PCP Physician Assistant
DX: M77.8 Other enthesopathies, not elsewhere classified (principal); R60.0 Localized edema
CPT/HCPCS: 36415; 71045; 73080; 80053; 83880; 85025; 93005; 99284